=== PATIENT | female | born 2000 | race American Indian/Alaskan Native ===

== ENCOUNTER 2020-01-08 22:46 | Emergency (ER) | payer MEDICAID ==
[2020-01-08] MEDS ORDERED: predniSONE 20 MG Tab PO ONE (23:00)
[2020-01-08] MEDS ORDERED: Albuterol/Ipratropium 3.0-0.5 MG/3 ML Neb Soln NEB ONE (23:00)
--- NOTE | 2020-01-08 23:03 | EDM.PDOC ---
ED HPI GENERAL MEDICAL PROBLEM - General Chief Complaint: Asthma Stated Complaint: HURTS WHEN SHE BREATHES/ASTHMA Time Seen by Provider: 01/08/20 23:00 Source of Information: Reports: Patient History Limitations: Reports: No Limitations - History of Present Illness INITIAL COMMENTS - FREE TEXT/NARRATIVE: 2 weeks h/o wheezing been using nebs but not helping. 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 ED EXAM, GENERAL - Physical Exam Exam: See Below Exam Limited By: No Limitations General Appearance: Alert, WD/WN, Mild Distress, Other (wheezing) Ears: Hearing Grossly Normal Throat/Mouth: Normal Voice, No Airway Compromise Head: Atraumatic Neck: Non-Tender, Full Range of Motion Respiratory/Chest: Decreased Breath Sounds, Rhonchi, Wheezing. No: No Accessory Muscle Use Cardiovascular: Regular Rate, Rhythm GI/Abdominal: Soft, Non-Tender Neurological: Alert, Oriented, Normal Cognition, Normal Gait, No Motor/Sensory Deficits Psychiatric: Anxious Skin Exam: Warm, Dry, Normal Color Lymphatic: No Adenopathy Course - Vital Signs Last Recorded V/S: Last Vital Signs Temp 36.4 C 01/08/20 22:49 Pulse 131 H 01/08/20 22:49 Resp 18 01/08/20 22:49 BP 172/96 H 01/08/20 22:49 Pulse Ox 99 01/08/20 22:49 - Orders/Labs/Meds Orders: Active Orders 24 hr Category Date Time Status RT Aerosol Therapy [RC] ASDIRECTED Care 01/08/20 23:00 Active Meds: Medications Discontinued Medications Generic Name Dose Route Start Last Admin Trade Name Baldemar PRN Reason Stop Dose Admin Albuterol/Ipratropium 3 ml 01/08/20 23:00 01/08/20 23:04 Duoneb 3.0-0.5 Mg/3 Ml NEB 01/08/20 23:01 3 ml ONETIME ONE Administration Prednisone 20 mg 01/08/20 23:00 01/08/20 23:04 Prednisone PO 01/08/20 23:01 20 mg ONETIME ONE Administration Departure - Departure Time of Disposition: 23:25 Disposition: Home, Self-Care 01 Condition: Good Clinical Impression: Asthma exacerbation Qualifiers: Asthma severity: moderate Asthma persistence: persistent Qualified Code(s): J45.41 - Moderate persistent asthma with (acute) exacerbation - Discharge Information Instructions: Asthma, Adult, [id number] Referrals: PCP,None [Primary Care Provider] - Forms: ED Department Discharge Additional Instructions: 1) continue with nebs 2) follow up at clinic rx given; medrol dosjuank Sepsis Event Note - Evaluation Sepsis Screening Result: No Definite Risk - Focused Exam Vital Signs: Vital Signs Temp Pulse Resp BP Pulse Ox 01/08/20 22:49 36.4 C 131 H 18 172/96 H 99 Date Exam was Performed: 01/08/20 Time Exam was Performed: 23:50 - My Orders Last 24 Hours: My Active Orders 01/08/20 23:00 RT Aerosol Therapy [RC] ASDIRECTED - Assessment/Plan Last 24 Hours: My Active Orders 01/08/20 23:00 RT Aerosol Therapy [RC] ASDIRECTED
== END 2020-01-08 23:26 | disposition home or self-care (01) ==
LOC: DL.ED 22:46
DX: J45.41 Moderate persistent asthma with (acute) exacerbation (principal)
CPT/HCPCS: 94640; 99284; J7512; J7620-GY